=== PATIENT | female | born 1975 | race Caucasian/White ===

== ENCOUNTER 2016-08-05 20:27 | Emergency (ER) | payer SELFPAY ==
[2016-08-05] MEDS ORDERED: Dexamethasone 4 mg/ml Vial ONE (20:44)
== END 2016-08-05 20:52 | disposition home or self-care (01) ==
LOC: BURERS 20:27
DX: J02.9 Acute pharyngitis, unspecified (principal); K21.9 Gastro-esophageal reflux disease without esophagitis; J45.909 Unspecified asthma, uncomplicated; F32.9 Major depressive disorder, single episode, unspecified; F41.9 Anxiety disorder, unspecified; I11.0 Hypertensive heart disease with heart failure; I50.9 Heart failure, unspecified
CPT/HCPCS: 99282; J1100

== ENCOUNTER 2016-12-02 10:17 | Emergency (ER) | payer SELFPAY ==
[2016-12-02] MEDS ORDERED: Triamcinolone 40 MG/ML VIAL ONE ×2 (10:40→10:41)
[2016-12-02] MEDS ORDERED: Lidocaine 1% 20 ML MDV ONE (11:05)
[2016-12-02] MEDS ORDERED: cefTRIAXone\\ROCEPHIN 1 GM VIAL ONE (11:05)
--- NOTE | 2016-12-02 17:40 | RAD ---
CHEST 2 VIEWS: Date: 12/02/16 Comparison is made with the prior study of 01/19/09. FINDINGS: Mild scoliosis is present as before. The heart is normal in size. The lungs are clear. There is no e vidence of pneumonia or pleural effusion at the moment. The mediastinum is unremarkable. IMPRESSION: Stable exam showing no acute findings. POS: HOME
== END 2016-12-02 11:27 | disposition home or self-care (01) ==
LOC: BURERS 10:17
DX: J18.9 Pneumonia, unspecified organism (principal); K21.9 Gastro-esophageal reflux disease without esophagitis; F41.9 Anxiety disorder, unspecified; F32.9 Major depressive disorder, single episode, unspecified; J45.909 Unspecified asthma, uncomplicated; I11.0 Hypertensive heart disease with heart failure; I50.9 Heart failure, unspecified
CPT/HCPCS: 71020; 94640; 96372; J0696; J2001; J3301; J7620

== ENCOUNTER 2017-05-19 11:06 | Emergency (ER) | payer SELFPAY ==
[2017-05-19] MEDS ORDERED: cefTRIAXone\\ROCEPHIN 1 GM VIAL ONE (11:27)
[2017-05-19] MEDS ORDERED: Dexamethasone 4 mg/ml Vial ONE (11:27)
[2017-05-19] MEDS ORDERED: hydrOXYzine 25 MG TAB ONE (11:56)
== END 2017-05-19 11:59 ==
LOC: BURERS 11:06
DX: J20.9 Acute bronchitis, unspecified (principal); F17.290 Nicotine dependence, other tobacco product, uncomplicated; J45.909 Unspecified asthma, uncomplicated; K21.9 Gastro-esophageal reflux disease without esophagitis; I11.0 Hypertensive heart disease with heart failure; I50.9 Heart failure, unspecified; K58.9 Irritable bowel syndrome, unspecified; F41.9 Anxiety disorder, unspecified; F32.9 Major depressive disorder, single episode, unspecified
CPT/HCPCS: 94640; 96372; A4216; J0696; J1100; J7620

== ENCOUNTER 2017-08-10 09:15 | Emergency (ER) | payer SELFPAY ==
[2017-08-10] MEDS ORDERED: Dexamethasone 4 mg/ml Vial ONE (09:52)
[2017-08-10] MEDS ORDERED: Bicillin CR 1.2 MILL UNITS/2 ML SYRINGE ONE (09:52)
== END 2017-08-10 10:05 | disposition home or self-care (01) ==
LOC: BURERS 09:15
DX: J02.9 Acute pharyngitis, unspecified (principal); J45.909 Unspecified asthma, uncomplicated; I10 Essential (primary) hypertension; F41.9 Anxiety disorder, unspecified; F32.9 Major depressive disorder, single episode, unspecified; F17.210 Nicotine dependence, cigarettes, uncomplicated
CPT/HCPCS: 96372; J0558; J1100

== ENCOUNTER 2018-05-26 11:17 | Emergency (ER) | payer SELFPAY ==
[2018-05-26 12:36] LABS: #Basophils 0.1 thou/uL (0.0-0.2); #Lymphocytes 1.6 thou/uL (1.20-3.40); #Monocytes 0.4 thou/uL (0.11-0.59); %Eosinophils 0.1 % (0.0-10.0); Hemoglobin 13.8 g/dL (12.0-16.0); Mean Corpuscular Hemoglobin 30.9 pg (27.0-31.0); Mean Corpuscular Volume 88.1 fL (78.0-98.0); Mean Platelet Volume 7.1 fL (7.4-10.4); Platelet Count 334 thou/uL (130-400); RBC Distribution Width 12.5 % (11.5-14.5); Red Blood Cell (RBC) Count 4.46 mill/uL (4.20-5.40); White Blood Cell (WBC) Count 6.1 thou/uL (4.8-10.8)
[2018-05-26 12:46] LABS: ALT (SGPT) 22 U/L (8-55); AST (SGOT) 27 U/L (5-34); Alkaline Phosphatase 73 U/L (40-150); Anion Gap 15 mmol/L (10-20); BUN (Urea Nitrogen) 12 mg/dL (7.0-18.7); Bilirubin, Total 0.5 mg/dL (0.2-1.2); Calc. Creatinine Clearance 0 mL/min (70-130); Calcium 9.4 mg/dL (7.8-10.44); Carbon Dioxide 22 mmol/L (22-29); Chloride 105 mmol/L (98-107); Estimated GFR-MDRD 79; Globulin 3.3 g/dL (2.4-3.5); Glucose 95 mg/dL (70-105); Lipase 11 U/L (8-78); Protein, Total 7.3 g/dL (6.0-8.3); Sodium 139 mmol/L (136-145)
[2018-05-26] MEDS ORDERED: Ondansetron PF 4 MG/2 ML Vial ONE (12:47)
== END 2018-05-26 13:53 | disposition home or self-care (01) ==
LOC: BURERS 11:17
DX: A08.4 Viral intestinal infection, unspecified (principal); E87.6 Hypokalemia; D50.9 Iron deficiency anemia, unspecified; F32.9 Major depressive disorder, single episode, unspecified; F41.9 Anxiety disorder, unspecified; J45.909 Unspecified asthma, uncomplicated; K21.9 Gastro-esophageal reflux disease without esophagitis; K58.9 Irritable bowel syndrome, unspecified; F17.210 Nicotine dependence, cigarettes, uncomplicated
CPT/HCPCS: 80053; 83690; 85025; 94760; 96361; 96374; J2405

== ENCOUNTER 2018-06-22 20:59 | Emergency (ER) | payer SELFPAY ==
--- NOTE | 2018-06-22 21:42 | RAD ---
TWO VIEWS OF THE CHEST: 06/22/18 COMPARISON: 12/02/16 HISTORY: Cough. FINDINGS: Two views of the chest show normal sized cardiomediastinal silhouette. There is no evidence of consol idation, mass, or pleural effusion. The bones are unremarkable. IMPRESSION: No evidence of acute cardiopulmonary disease. POS: [facility]
[2018-06-22] MEDS ORDERED: Acetaminophen 500 MG TAB ONE (22:05)
[2018-06-22] MEDS ORDERED: methylPREDNISolone Sod Succ/PF 125 MG/2 ML VIAL ONE (22:06)
== END 2018-06-22 22:23 | disposition home or self-care (01) ==
LOC: BURERS 20:59
DX: J44.1 Chronic obstructive pulmonary disease with (acute) exacerbation (principal); D50.9 Iron deficiency anemia, unspecified; I10 Essential (primary) hypertension; K21.9 Gastro-esophageal reflux disease without esophagitis; F41.9 Anxiety disorder, unspecified; F32.9 Major depressive disorder, single episode, unspecified
CPT/HCPCS: 71046; 87804; 96372; J2930; J7620

== ENCOUNTER 2019-03-21 20:23 | Emergency (ER) | payer SELFPAY ==
[2019-03-21] MEDS ORDERED: Ondansetron ODT 4 MG TAB ONE (20:38)
[2019-03-21 20:46] LABS: Bilirubin Negative (Negative); Blood, Urine Trace (Negative); Clarity Cloudy (Clear); Glucose, Urine (Dipstick) Negative (Negative); Leukocyte Trace (Negative); Nitrite Negative (Negative); Protein, Urine (Dipstick) Negative (Neg-Trace); Urobilinogen 0.2 mg/dL (Less than 2)
[2019-03-21 20:50] LABS: Bacteria/HPF 2+ HPF (None Seen)
[2019-03-21] MEDS ORDERED: cefTRIAXone\\ROCEPHIN 1 GM VIAL ONE (21:04)
[2019-03-21] MEDS ORDERED: Lidocaine 1% PF 5 ML VIAL ONE (21:04)
[2019-03-21] MEDS ORDERED: Nitrofurantoin Monohyd/M-Cryst 100 MG CAP ONE (21:04)
--- NOTE | 2019-03-21 21:57 | RAD ---
CHEST TWO VIEWS: 03/21/19 PA and lateral views are compared with a 06/22/18 study. Scoliosis is noted as usual. The heart is normal in size and there is no vascular congestion, edema, or pleural effusion. No focal pulmonary infiltrate was seen. Slight prominence of markings on the lat eral view posteriorly probably just due to overlap and the patient's normal baseline. If she were to continue with cough, then a delayed follow-up chest film looking at the retrocardiac area again might be needed. IMPRESSION: Probably negative study. Slight prominence of retrocardiac markings but not enough to make a firm jaron gnosis at this time. Code T POS: HOME
== END 2019-03-21 21:15 | disposition home or self-care (01) ==
LOC: BURERS 20:23
DX: N12 Tubulo-interstitial nephritis, not specified as acute or chronic (principal); I10 Essential (primary) hypertension; D50.9 Iron deficiency anemia, unspecified; J45.909 Unspecified asthma, uncomplicated; K21.9 Gastro-esophageal reflux disease without esophagitis; F41.9 Anxiety disorder, unspecified; F32.9 Major depressive disorder, single episode, unspecified; F17.210 Nicotine dependence, cigarettes, uncomplicated; Z79.899 Other long term (current) drug therapy
CPT/HCPCS: 71046; 81003; 81015; 87077; 87086; 87186; 96372; J0696; J2001; Q0162

== ENCOUNTER 2020-02-15 19:29 | Emergency (ER) | payer OTHER, SELFPAY ==
--- NOTE | 2020-02-15 21:12 | RAD ---
PORTABLE CHEST: 02/15/20 An AP portable film at 2010 is compared with a 03/21/19 study. The heart is normal in size. The upper lobes are clear. There is some slight increased haziness in th e right base, more so than the prior study. While the patient is turned slightly to the right, I jose ot completely exclude an early infiltrate here, though this could just be overlap of breast tissue. T here are no effusions. Mild scoliosis is noted as usual. IMPRESSION: Very minor right basilar haziness of equivocal significance. POS: HOME
[2020-02-15] MEDS ORDERED: predniSONE 20 MG TAB ONE (21:15)
[2020-02-16 18:55] LABS: SARS-CoV-2 MS2 Positive; SARS-CoV-2 N Gene Negative; SARS-CoV-2 S Gene Negative; SARS-CoV-2 by NAA Not Detected (NotDetected); SARS-CoV-2 orf1ab Negative
== END 2020-02-15 21:20 | disposition home or self-care (01) ==
LOC: BURERS 19:29
DX: J06.9 Acute upper respiratory infection, unspecified (principal); D50.9 Iron deficiency anemia, unspecified; I10 Essential (primary) hypertension; J45.909 Unspecified asthma, uncomplicated; K21.9 Gastro-esophageal reflux disease without esophagitis; F41.9 Anxiety disorder, unspecified; F32.9 Major depressive disorder, single episode, unspecified; F17.210 Nicotine dependence, cigarettes, uncomplicated; Z79.899 Other long term (current) drug therapy; Z20.828 Contact with and (suspected) exposure to other viral communicable diseases
CPT/HCPCS: 71045; 87081; 87430; 87635; J7512; U0003

== ENCOUNTER 2020-04-24 11:10 | Observation (INO) | payer OTHER, SELFPAY ==
[2020-04-24] MEDS ORDERED: Acetaminophen 500 MG TAB ONE (11:53)
[2020-04-24] MEDS ORDERED: Ondansetron PF 4 MG/2 ML Vial ONE ×2 (11:53→13:12)
[2020-04-24 11:57] LABS: #Basophils 0.2 thou/uL (0.0-0.2); #Eosinphils 0.1 thou/uL (0.0-0.7); #Monocytes 1.6 thou/uL (0.11-0.59); #Neutrophils 10.4 thou/uL (1.40-6.50); %Basophils 1.1 % (0.0-1.0); %Eosinophils 0.7 % (0.0-10.0); %Lymphocytes 28.9 % (21.0-51.0); %Monocytes 9.1 % (0.0-10.0); %Neutrophils 60.1 % (42.0-75.0); Hemoglobin 12.9 g/dL (12.0-16.0); Mean Corpuscular HGB CONC 34.2 g/dL (32.0-36.0); Mean Corpuscular Hemoglobin 31.5 pg (27.0-31.0); Mean Platelet Volume 7.4 fL (7.4-10.4); Platelet Count 345 thou/uL (130-400); RBC Distribution Width 12.5 % (11.5-14.5); Red Blood Cell (RBC) Count 4.08 mill/uL (4.20-5.40); White Blood Cell (WBC) Count 17.4 thou/uL (4.8-10.8)
[2020-04-24 12:13] LABS: ALT (SGPT) 71 U/L (8-55); AST (SGOT) 70 U/L (5-34); Albumin 4.1 g/dL (3.5-5.0); Alkaline Phosphatase 135 U/L (40-110); Anion Gap 19 mmol/L (10-20); BUN (Urea Nitrogen) 6 mg/dL (7.0-18.7); Bilirubin, Total 0.8 mg/dL (0.2-1.2); Calc. Creatinine Clearance 0 mL/min (70-130); Calcium 9.2 mg/dL (7.8-10.44); Carbon Dioxide 27 mmol/L (22-29); Chloride 96 mmol/L (98-107); Estimated GFR-MDRD 78; Globulin 4.1 g/dL (2.4-3.5); Glucose 104 mg/dL (70-105); Protein, Total 8.2 g/dL (6.0-8.3); Sodium 139 mmol/L (136-145)
[2020-04-24 12:20] LABS: Potassium 2.5 mmol/L (3.5-5.1)
[2020-04-24] MEDS ORDERED: Fentanyl 100 MCG/2 ML VIAL ONE ×3 (12:24→20:32)
[2020-04-24 12:29] LABS: Bilirubin Negative (Negative); Blood, Urine Negative (Negative); Clarity Cloudy (Clear); Glucose, Urine (Dipstick) Negative (Negative); Ketone, Urine Negative (Negative); Leukocyte Small (Negative); Nitrite Negative (Negative); Protein, Urine (Dipstick) 30 mg/dL (Neg-Trace); pH, Urine 6.5 (5.0-9.0)
[2020-04-24 12:33] LABS: Bacteria/HPF 2+ HPF (None Seen); RBC/HPF 0-3 HPF (0-3)
[2020-04-24] MEDS ORDERED: cefTRIAXone\\ROCEPHIN 1 GM VIAL ONE (12:37)
[2020-04-24] MEDS ORDERED: Potassium Chloride 20 MEQ TAB ONE (12:37)
[2020-04-24] MEDS ORDERED: Sodium Chloride 0.9% 100 ML ONE (12:37)
[2020-04-24] MEDS ORDERED: Potassium Chloride 20 MEQ in Premix Bag 1 BAG IVPB SCH (14:00)
[2020-04-24] MEDS ORDERED: Iopamidol 370 76% 100 ML VIAL ONE (16:21)
[2020-04-24 17:24] VITALS: BMI 26.4
--- NOTE | 2020-04-24 17:55 | RAD ---
PORTABLE CHEST: 04/24/20 An AP portable film at 1342 is compared with an 02/15/20 study. There is a little diffuse haziness to the lungs, a little more so than before, though I am not convinced that it is really infiltrates. Th is may just be technique. The heart size is normal. No lobar consolidation or edema was seen. IMPRESSION: Slight haziness but no definite acute findings. POS: HOME
[2020-04-24] MEDS ORDERED: CARISOPRODOL 250 MG PO PRN (18:19)
--- NOTE | 2020-04-24 18:59 | CT ---
CT ABDOMEN AND PELVIS 04/24/20 Comparison is made with a prior study of 01/03/16. The lung base are clear with no acute infiltrate or effusion. There may be a few linear scars. A slig htly nodular subcentimeter density in the peripheral right lower lobe on the top slice is indetermina te because it is not seen completely. It could be a tiny nodule just as easily as it could be a blood vessel seen incompletely. There are multiple areas of enhancement present in the liver. There are several areas in each lobe th at enhance with contrast. While the enhancement around them seems to be more peripheral than central, suggesting the possibility of hemangiomas, I would note that they are numerous and they were not pre sent on the [address]. The differential then becomes metastatic disease versus multiple hem angiomas versus infection. The latter seems less likely, though I do note the patient has fever. This needs follow-up possibly an MRI. The common bile duct is dilated measuring 1.4 cm in width, but this is not different than 2016 and there is no intrahepatic ductal dilation. There was a prior cholecyst ectomy. The spleen, pancreas, adrenal glands, and kidneys showed no acute findings. The aorta is norm al in caliber throughout. The bowel shows no distention to suggest obstruction. There is no remarkable bowel wall thickening. T he only area that was even questionable was the right colon, and I understand the pain is on the left . The appendix appears to be normal in size. CT of the pelvis shows a 3.4 cm left ovarian cyst. This was present in 2016 and has not changed in si ze. There seems to be additional fluid in the endometrial cavity right now, significance unknown. No free fluid is present in the pelvis, nor are there inflammatory changes in the fat. IMPRESSION: 1. Multiple areas of hyperenhancement scattered throughout both lobes of the liver, not present on prior CT scans. See differential above. 2. 3.4 cm left ovarian cyst, unchanged from previously. There is some increased fluid in the end ometrial cavity as well which may or may not be significant. 3. Large common bile duct, but no different than 2016. Initial findings discussed with Dr. Ulloa at 1425 on 04/24/20. POS: HOME
[2020-04-24] MEDS: traMADol HCl 50 MG TAB PO PRN (19:09)
[2020-04-24] MEDS: Acetaminophen 325 MG TAB PO PRN (19:12)
[2020-04-24] MEDS: Sodium Chloride 0.9% 1,000 ML IV SCH (19:18)
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
[2020-04-24] MEDS: Fentanyl 100 MCG/2 ML VIAL SLOW IVP PRN (20:37)
[2020-04-24] MEDS: Diphenoxylate HCl/Atropine Tablet PO SCH (20:38)
[2020-04-24] MEDS ORDERED: Potassium Chloride 10 MEQ TAB PO SCH (21:00)
[2020-04-25] MEDS: Acetaminophen 325 MG TAB PO PRN ×3 (00:21→18:41)
[2020-04-25] MEDS: Ondansetron ODT 4 MG TAB SL PRN ×2 (00:21→13:57)
[2020-04-25] MEDS ORDERED: Fentanyl 100 MCG/2 ML VIAL ONE ×4 (00:31→15:30)
[2020-04-25] MEDS: Fentanyl 100 MCG/2 ML VIAL SLOW IVP PRN ×3 (00:36→15:34)
[2020-04-25] MEDS: traMADol HCl 50 MG TAB PO PRN ×3 (04:06→18:41)
[2020-04-25 05:29] LABS: #Basophils 0.1 thou/uL (0.0-0.2); #Eosinphils 0.1 thou/uL (0.0-0.7); #Lymphocytes 2.7 thou/uL (1.20-3.40); #Monocytes 1.2 thou/uL (0.11-0.59); #Neutrophils 7.9 thou/uL (1.40-6.50); %Basophils 0.7 % (0.0-1.0); %Lymphocytes 22.7 % (21.0-51.0); %Monocytes 10.1 % (0.0-10.0); %Neutrophils 65.4 % (42.0-75.0); Hemoglobin 10.5 g/dL (12.0-16.0); Mean Corpuscular HGB CONC 34.4 g/dL (32.0-36.0); Mean Platelet Volume 7.4 fL (7.4-10.4); Platelet Count 258 thou/uL (130-400); RBC Distribution Width 12.5 % (11.5-14.5); Red Blood Cell (RBC) Count 3.28 mill/uL (4.20-5.40); White Blood Cell (WBC) Count 12.1 thou/uL (4.8-10.8)
[2020-04-25 05:32] LABS: Anion Gap 16 mmol/L (10-20)
[2020-04-25 07:02] LABS: ALT (SGPT) 52 U/L (8-55); AST (SGOT) 44 U/L (5-34); Albumin 3.3 g/dL (3.5-5.0); Alkaline Phosphatase 99 U/L (40-110); BUN (Urea Nitrogen) 4 mg/dL (7.0-18.7); Calc. Creatinine Clearance 126 mL/min (70-130); Calcium 7.8 mg/dL (7.8-10.44); Carbon Dioxide 23 mmol/L (22-29); Chloride 105 mmol/L (98-107); Estimated GFR-MDRD 84; Globulin 3.1 g/dL (2.4-3.5); Glucose 94 mg/dL (70-105); Potassium 2.5 mmol/L (3.5-5.1); Protein, Total 6.4 g/dL (6.0-8.3); Sodium 141 mmol/L (136-145)
[2020-04-25 07:09] LABS: Bilirubin, Total 0.4 mg/dL (0.2-1.2)
[2020-04-25] MEDS ORDERED: Potassium Chloride 20 MEQ TAB PO SCH (07:30)
[2020-04-25] MEDS ORDERED: FLU VACC QS2020-21(6MOS UP)/PF 60 MCG/0.5 ML SYRINGE IM ONE (07:45)
[2020-04-25] MEDS: Saccharomyces boulardii 250 MG CAP PO SCH (08:29)
[2020-04-25] MEDS: Diphenoxylate HCl/Atropine Tablet PO SCH ×3 (08:29→20:38)
[2020-04-25] MEDS: Lisinopril 20 MG TAB PO SCH (08:31)
[2020-04-25] MEDS: Potassium Chloride 10 MEQ TAB PO SCH ×3 (08:31→20:38)
[2020-04-25] MEDS: Enoxaparin Sodium 40 MG/0.4 ML SYRINGE SC SCH (08:31)
[2020-04-25] MEDS: Ondansetron PF 4 MG/2 ML Vial IVP PRN (11:12)
[2020-04-25] MEDS: cefTRIAXone\\ROCEPHIN 1 GM in Sodium Chloride 0.9% 100 ML IVPB SCH (13:21)
[2020-04-25 13:54] LABS: SARS-CoV-2 MS2 Positive; SARS-CoV-2 N Gene Negative; SARS-CoV-2 S Gene Negative; SARS-CoV-2 by NAA Not Detected (NotDetected); SARS-CoV-2 orf1ab Negative
[2020-04-25] MEDS: Sodium Chloride 0.9% 1,000 ML IV SCH (13:56)
[2020-04-25] MEDS: Cyclobenzaprine 10 MG TAB PO PRN (20:37)
[2020-04-25] MEDS: ALPRAZolam 0.5 MG TAB PO PRN (20:38)
[2020-04-25] MEDS ORDERED: Venlafaxine HCl XR 75 MG CAP PO SCH (21:45)
[2020-04-26] MEDS: Ondansetron PF 4 MG/2 ML Vial IVP PRN (02:57)
[2020-04-26] MEDS: Fentanyl 100 MCG/2 ML VIAL SLOW IVP PRN ×2 (02:57→15:37)
[2020-04-26 04:31] LABS: #Basophils 0.2 thou/uL (0.0-0.2); #Eosinphils 0.3 thou/uL (0.0-0.7); #Lymphocytes 3.4 thou/uL (1.20-3.40); #Monocytes 0.9 thou/uL (0.11-0.59); %Basophils 1.4 % (0.0-1.0); %Lymphocytes 31.6 % (21.0-51.0); %Monocytes 8.3 % (0.0-10.0); %Neutrophils 55.8 % (42.0-75.0); Hemoglobin 9.6 g/dL (12.0-16.0); Mean Corpuscular HGB CONC 33.2 g/dL (32.0-36.0); Mean Corpuscular Hemoglobin 31.5 pg (27.0-31.0); Mean Corpuscular Volume 94.9 fL (78.0-98.0); Mean Platelet Volume 7.6 fL (7.4-10.4); Platelet Count 254 thou/uL (130-400); RBC Distribution Width 12.9 % (11.5-14.5); Red Blood Cell (RBC) Count 3.03 mill/uL (4.20-5.40); White Blood Cell (WBC) Count 10.7 thou/uL (4.8-10.8)
[2020-04-26 04:33] LABS: ALT (SGPT) 45 U/L (8-55); AST (SGOT) 34 U/L (5-34); Albumin 3.3 g/dL (3.5-5.0); Alkaline Phosphatase 101 U/L (40-110); Anion Gap 17 mmol/L (10-20); BUN (Urea Nitrogen) Less than 4 mg/dL (7.0-18.7); Bilirubin, Total 0.3 mg/dL (0.2-1.2); Calc. Creatinine Clearance 130 mL/min (70-130); Calcium 7.6 mg/dL (7.8-10.44); Carbon Dioxide 20 mmol/L (22-29); Chloride 106 mmol/L (98-107); Estimated GFR-MDRD 87; Globulin 3.1 g/dL (2.4-3.5); Glucose 108 mg/dL (70-105); Protein, Total 6.4 g/dL (6.0-8.3); Sodium 140 mmol/L (136-145)
[2020-04-26 04:36] LABS: Potassium 2.6 mmol/L (3.5-5.1)
[2020-04-26] MEDS ORDERED: Potassium Chloride 20 MEQ TAB PO SCH (06:45)
[2020-04-26] MEDS: Diphenoxylate HCl/Atropine Tablet PO SCH ×3 (08:37→21:41)
[2020-04-26] MEDS: Saccharomyces boulardii 250 MG CAP PO SCH (08:37)
[2020-04-26] MEDS: Venlafaxine HCl XR 75 MG CAP PO SCH ×2 (08:37→21:41)
[2020-04-26] MEDS: Enoxaparin Sodium 40 MG/0.4 ML SYRINGE SC SCH (08:38)
[2020-04-26] MEDS: Lisinopril 20 MG TAB PO SCH (08:38)
[2020-04-26] MEDS: Potassium Chloride 20 MEQ TAB PO SCH ×3 (08:39→21:41)
[2020-04-26] MEDS: Ondansetron ODT 4 MG TAB SL PRN (14:24)
[2020-04-26] MEDS: cefTRIAXone\\ROCEPHIN 1 GM in Sodium Chloride 0.9% 100 ML IVPB SCH (14:44)
[2020-04-26] MEDS: ALPRAZolam 0.5 MG TAB PO PRN (21:40)
[2020-04-26] MEDS: Cyclobenzaprine 10 MG TAB PO PRN (21:40)
[2020-04-27] MEDS: Fentanyl 100 MCG/2 ML VIAL SLOW IVP PRN (03:34)
[2020-04-27 05:57] LABS: #Basophils 0.1 thou/uL (0.0-0.2); #Eosinphils 0.4 thou/uL (0.0-0.7); #Lymphocytes 2.5 thou/uL (1.20-3.40); #Monocytes 0.6 thou/uL (0.11-0.59); #Neutrophils 3.9 thou/uL (1.40-6.50); %Basophils 1.7 % (0.0-1.0); %Eosinophils 5.7 % (0.0-10.0); %Lymphocytes 33.5 % (21.0-51.0); %Monocytes 7.4 % (0.0-10.0); %Neutrophils 51.7 % (42.0-75.0); Hemoglobin 9.5 g/dL (12.0-16.0); Mean Corpuscular HGB CONC 32.8 g/dL (32.0-36.0); Mean Corpuscular Hemoglobin 31.3 pg (27.0-31.0); Mean Corpuscular Volume 95.2 fL (78.0-98.0); Mean Platelet Volume 7.1 fL (7.4-10.4); Platelet Count 263 thou/uL (130-400); Red Blood Cell (RBC) Count 3.04 mill/uL (4.20-5.40); White Blood Cell (WBC) Count 7.5 thou/uL (4.8-10.8)
[2020-04-27 06:12] LABS: ALT (SGPT) 43 U/L (8-55); AST (SGOT) 33 U/L (5-34); Albumin 3.2 g/dL (3.5-5.0); Alkaline Phosphatase 94 U/L (40-110); Anion Gap 15 mmol/L (10-20); BUN (Urea Nitrogen) 5 mg/dL (7.0-18.7); Bilirubin, Total 0.2 mg/dL (0.2-1.2); Calc. Creatinine Clearance 133 mL/min (70-130); Calcium 8.3 mg/dL (7.8-10.44); Carbon Dioxide 22 mmol/L (22-29); Chloride 107 mmol/L (98-107); Estimated GFR-MDRD 89; Globulin 3.3 g/dL (2.4-3.5); Glucose 94 mg/dL (70-105); Potassium 3.4 mmol/L (3.5-5.1); Protein, Total 6.5 g/dL (6.0-8.3); Sodium 141 mmol/L (136-145)
[2020-04-27 07:04] VITALS: TEMP 98.6
--- NOTE | 2020-04-27 07:52 | DIS ---
DATE OF ADMISSION: 04/24/2020 DATE OF DISCHARGE: 04/27/2020 ADMISSION DIAGNOSES: Pyelonephritis, gastroenteritis - C diff +, hypokalemia, nausea and vomiting. SECONDARY DIAGNOSES: Hypertension, anxiety, gastroesophageal reflux disease, chronic pain syndrome, and enhancing liver lesions. PROCEDURES: 04/24/2020, chest x-ray showed slight haziness, but no definite acute findings. 04/24/2020, CT scan of abdomen and pelvis showed multiple areas of hyper-enhancement scattered throughout both lobes of the liver, not present on prior CT scans. 3.4 cm left ovarian cyst, unchanged from previously. There is some increased fluid in the endometrial cavity as well, which may or may not be significant. Large common bile duct, but no different than 2016. HOSPITAL COURSE: A 44-year-old female presented to the [facility] Emergency Department with complaints of acute worsening of lower abdominal pain and left- sided flank pain accompanied by fever, nausea and vomiting. Initial temperature in the emergency department was 102.9 and the patient was notably tachycardic. Evaluation of the patient revealed leukocytosis with white blood cell count greater than 17 along with urinary tract infection. She was also noted to be hypokalemic with a potassium level of 2.5. The patient was treated with IV Zofran, IV Rocephin, IV fluids, Tylenol, and potassium chloride and subsequently admitted to the floor. Of note, the patient was also swabbed for COVID, which was negative. The patient's labs were trended during her stay and her leukocytosis gradually improved and has resolved over the last 48 hours. Her last recorded fever was greater than 48 hours now on 04/25/2020 at 100.8; she has been afebrile since that time. The patient's intake gradually improved throughout her stay and she was able to stop intravenous fluids and transition to a p.o. diet. Her potassium was effectively repleted with up titration of her basal potassium chloride dosing. The patient's cultures have returned with no abnormal growth to date. Stool cultures were ordered, and were found to be positive for C. diff. Secondary to the patient's defervescence, normalization of leukocytosis, repletion of potassium and tolerating a p.o. diet, she is now suitable to discharge back home. In regard to the CT scan showing enhancing liver lesion, it is advised for the patient to consider followup for outpatient MRI imaging. DISPOSITION: The patient will be discharged home and may follow up with her primary care physician next week, Dr. Paul Sylvester. DISCHARGE MEDICATIONS: New medications will be; 1. Up titration of potassium chloride to 40 mEq p.o. t.i.d. 2. Flagyl 500 mg p.o. t.i.d. x5 days. 3. Cephalexin 500 mg p.o. b.i.d. x5 days. 4. Zofran 4 mg sublingual q.6 hours p.r.n. 5. Florastor 250 mg p.o. daily. She will resume her usual medications including; 1. Venlafaxine extended release 150 mg b.i.d. 2. Soma 250 mg q.i.d. p.r.n. 3. Alprazolam 0.5 mg b.i.d. p.r.n. 4. Lomotil 2 tabs p.o. t.i.d. p.r.n. 5. Pantoprazole 40 mg daily. 6. Lisinopril 20 mg daily. 7. Tramadol 50 mg t.i.d. p.r.n. TIME SPENT: Total time in discharge of this patient greater than 30 minutes. Job ID: [id number] [facility]
[2020-04-27] MEDS: Saccharomyces boulardii 250 MG CAP PO SCH (08:11)
[2020-04-27] MEDS: Diphenoxylate HCl/Atropine Tablet PO SCH (08:11)
[2020-04-27] MEDS: Potassium Chloride 20 MEQ TAB PO SCH (08:12)
[2020-04-27] MEDS: Lisinopril 20 MG TAB PO SCH (08:12)
[2020-04-27] MEDS: Enoxaparin Sodium 40 MG/0.4 ML SYRINGE SC SCH (08:13)
[2020-04-27] MEDS: Venlafaxine HCl XR 75 MG CAP PO SCH (08:13)
[2020-04-27 08:14] VITALS: BP 142/82
== END 2020-04-27 10:35 | disposition home or self-care (01) ==
LOC: BURERS 11:10 → BURMED 14:40
PROVIDERS: ADMIT Family Medicine; ATTEND Family Medicine
DX: N12 Tubulo-interstitial nephritis, not specified as acute or chronic (principal); A04.72 Enterocolitis due to Clostridium difficile, not specified as recurrent; E87.6 Hypokalemia; N83.202 Unspecified ovarian cyst, left side; I10 Essential (primary) hypertension; F41.9 Anxiety disorder, unspecified; F32.9 Major depressive disorder, single episode, unspecified; K21.9 Gastro-esophageal reflux disease without esophagitis; G89.4 Chronic pain syndrome; K58.9 Irritable bowel syndrome, unspecified; F17.210 Nicotine dependence, cigarettes, uncomplicated; Z79.899 Other long term (current) drug therapy; Z88.1 Allergy status to other antibiotic agents; Z88.2 Allergy status to sulfonamides; Z20.828 Contact with and (suspected) exposure to other viral communicable diseases
CPT/HCPCS: 36415; 71045; 74177; 80053; 81003; 81015; 83605; 84484; 85025; 87040; 87086; 87324; 87427; 87449; 87493; 87635; 90471; 90732; 93005; 94760; 96365; 96366; 96375; 96376; C9803; G0009; G0378; J0696; J1650; J2405; J3010; J3490; J7050; J7620; Q0162; Q9967; U0003